=== PATIENT | female | born 1995 | race Caucasian/White ===

== ENCOUNTER 2019-03-27 00:56 | Inpatient (IN) | payer OTHER ==
[2019-03-27] MEDS ORDERED: OLIVE OIL 118 ML BTL MISC PRN (01:11)
[2019-03-27] MEDS ORDERED: EPSOM SALT 454 GM TP PRN (01:11)
[2019-03-27] MEDS ORDERED: OXYTOCIN/RINGERS LACTATE 1,000 ML IV PRN (01:11)
[2019-03-27] MEDS ORDERED: IBUPROFEN 600 MG TAB PO PRN (01:11)
[2019-03-27] MEDS ORDERED: MISOPROSTOL 200 MCG TAB PR PRN (01:11)
[2019-03-27] MEDS ORDERED: LIDOCAINE 1% 300 MG/30 ML SDV SC PRN (01:11)
[2019-03-27] MEDS: LR 1,000 ML IV PRN ×2 (02:03→04:43)
[2019-03-27 02:10] LABS: PLATELET COUNT 223 10^3/uL (150-400)
[2019-03-27] MEDS ORDERED: BUPIVACAINE 0.25% 10 ML SDV ONE (02:23)
[2019-03-27] MEDS ORDERED: PHENYLEPHRINE HCL 100 MCG/ML SYR ONE (02:23)
[2019-03-27] MEDS ORDERED: PHENYLEPHRINE HCL 100 MCG/ML SYR IVP PRN (02:25)
--- NOTE | 2019-03-27 02:25 | PREANESOB ---
Obstetric Pre-Anesthesia Info - General Info Proposed Procedure: LIANE : 3 Para: 0 DELANEY: 03/25/19 Gestational Age: 40 week(s) and 2 day(s) - Info Status: Full Term Monitors: External FHR Pattern: Reassuring - Labor Status PIH: No Indications for Labor Analgesia: Pain Control Labor Epidural: Proposed Anesthesia Allergies/Adverse Reactions: Allergy/AdvReac Type Severity Reaction Status Date / Time No Known Allergies Allergy Unverified 03/27/19 01:10 Home Medications: Medication Instructions Recorded 03/27/19 Visit Medications: Generic Name Dose Route Start Last Admin Trade Name Freq PRN Reason Stop Dose Admin Lactated Ringer's 1,000 mls @ 0 mls/hr 03/27/19 01:11 03/27/19 02:03 Lr IV 03/28/19 01:10 1,000 mls PRN PRN Administration SEE PROTOCOL CONDITIONS Protocol Per Protocol Oxytocin/Lactated Ringer's 1,000 mls @ 125 mls/hr 03/27/19 01:11 Pitocin 20 Units/Lr (Premix) IV PRN PRN Post bleeding Ibuprofen 600 mg 03/27/19 01:11 Motrin PO ONCE PRN post , pain Lidocaine HCl 300 mg 03/27/19 01:11 Lidocaine Hcl 1% SC 09/23/19 01:10 ONCE PRN episiotomy Magnesium Sulfate 454 gm 03/27/19 01:11 Epsom Salt TP 09/23/19 01:10 Q1H PRN perineal discomfort Misoprostol 800 - 1,000 mcg 03/27/19 01:11 Cytotec MT ONCE PRN Vaginal Atony/Bleeding [place] Oil 118 ml 03/27/19 01:11 Sweet Oil MISC 09/23/19 01:10 ONCE PRN perineal massage Discontinued Medications Generic Name Dose Route Start Last Admin Trade Name Freq PRN Reason Stop Dose Admin Bupivacaine HCl Confirm 03/27/19 02:23 Sensorcaine 0.25% Sdv Administered 03/27/19 02:24 Dose 10 ml .ROUTE .STK-MED ONE Phenylephrine HCl Confirm 03/27/19 02:23 Neosynephrine Administered 03/27/19 02:24 Dose 1,000 mcg .ROUTE .STK-MED ONE - Anesthesia History Response to Local Anesthetics: Normal Anesthesia & Operative History: No Prior Problems - Vital Signs Height/Weight (Nursing): Height 162.56 cm Weight 85.729 kg - Focused Exam Neck exam: FROM Mallampati Score: Class 2 Mouth exam: normal dental/mouth exam Pulmonary: no respiratory distress, no rales or rhonchi, clear to auscultation Cardiovascular: regular rate and rhythym, no murmur, rub, or gallop Labs: 03/27/19 02:00
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
[2019-03-27] MEDS ORDERED: fentaNYL 200 MCG, BUPIVACAINE 0.5% 20 ML in NS 100 ML EP SCH (02:30)
[2019-03-27] MEDS ORDERED: fentaNYL 2MCG/ML/BUP 0.1% RTU 100 ML EP SCH (02:30)
[2019-03-27] MEDS ORDERED: LR 500 ML IV SCH (02:30)
[2019-03-27] MEDS ORDERED: LIDOCAINE 1% 300 MG/30 ML SDV ONE (02:45)
[2019-03-27] MEDS ORDERED: AMMONIA AROMATIC 1 EACH AMP IH ONE (02:46)
[2019-03-27] MEDS ORDERED: OLIVE OIL 118 ML BTL MISC ONE (02:46)
[2019-03-27] MEDS ORDERED: TERBUTALINE SULFATE 1 MG/ML VIAL ONE (02:46)
[2019-03-27] MEDS ORDERED: MISOPROSTOL 200 MCG TAB ONE (02:47)
[2019-03-27] MEDS ORDERED: OXYTOCIN 10 UNIT/ML VIAL ONE (02:47)
--- NOTE | 2019-03-27 03:03 | POSTANESTH ---
Post Anesthetic Evaluation Cardiovascular Status: Normal, Stable, Similar to Pre-Op Cond Respiratory Status: Normal, Stable, Similar to Pre-op Cond. Level of Consciousness/Mental Status: Can Participate in Eval, Alert and Oriented Pain Control: Adequate, Prn Tx Ordered Nausea/Vomiting Control: Adequate, Prn Tx Ordered Complications Possibly Related to Anesthesia: None Noted (Excellent analgesia.)
--- NOTE | 2019-03-27 06:43 | OBPROG ---
Labor Progress Note Assessment/Plan: Assessment: 23 y/o @ 40 2/7 weeks in labor Plan: Good cervical progress, regular contractions. status reassuring. I will sign off to Dr Diaz this am. 03/27/19 06:42 Subjective/Intrapartum Course: 03/27/19 06:40 Pt is doing well comfortable with her epidural. Objective: 03/27/19 02:00 Patient ABO/Rh A POSITIVE 03/27/19 02:00 - SVE Dilation (cm): 7 Effacement (%): 90 Station: 0 Membranes: AROM Amniotic Fluid Color: Clear (blood tinged) - Contraction Pattern Assessment Current Contraction Pattern: Regular (Q 2-3) - FHR Assessment Johansen FHR (bpm): 130 FHR Pattern Variability: Moderate FHR Category: 1 - Procedures Non-surgical Procedures: Amniotomy - AP Antepartum Course: 03/27/19 06:41 Late care, u/s dating @ 16 weeks + MJ, Etoh use prior to knowledge, neg u tox Oxytocin Orders Assessment - Pre-Induction/Augmentation Assessment Gestational Age: 40 week(s) and 2 day(s) ICD10 Worksheet Patient Problems: Problems Problem Status Onset Normal labor Acute - ICD10 Problem Qualifiers (1) Normal labor
[2019-03-27] MEDS ORDERED: ACETAMINOPHEN 500 MG TAB PO ONE (10:10)
--- NOTE | 2019-03-27 10:53 | OBPROG ---
Labor Progress Note Assessment/Plan: Assessment: 23 y/o @ 40 23/7 wks in active labor Plan: Continue current management SVE: Ant lip/100/0 Baby feels asynclitic on exam; will try position changes Pt is uncomfortable with L sided pain, pt is pressing epidural button with some relief Temp of 38.3 @ 0945, s/p Tylenol; no signs of tachycardia; will cont to monitor FHTs - Cat I tracing, reassuring Will reassess in 1 hour or sooner 03/27/19 10:48 Subjective/Intrapartum Course: 03/27/19 06:40 Pt is doing well comfortable with her epidural. 03/27/19 10:53 Pt is c/o pain on her L side that began about 10-15 min ago; she had pressed epidural button about 30 min ago with relief. She is breathing through her ctx' s. She does not feel any pressure. Objective: 03/27/19 02:00 Patient ABO/Rh A POSITIVE 03/27/19 02:00 - SVE Dilation (cm): 9 (Ant lip; baby feels asynclitic) Effacement (%): 100 Station: 0 - Contraction Pattern Assessment Current Contraction Pattern: Regular (q 2-3min) - FHR Assessment Johansen FHR (bpm): 140 FHR Pattern Variability: Moderate FHR Category: 1 - AP Antepartum Course: 03/27/19 06:41 Late care, u/s dating @ 16 weeks + MJ, Etoh use prior to knowledge, neg u tox Oxytocin Orders Assessment - Pre-Induction/Augmentation Assessment Gestational Age: 40 week(s) and 2 day(s) ICD10 Worksheet Patient Problems: Problems Problem Status Onset Normal labor Acute
--- NOTE | 2019-03-27 12:26 | OBPROG ---
Labor Progress Note Assessment/Plan: Assessment: 23 y/o @ 40 23/7 wks in active labor Plan: SVE: Complete/+1 Pt started to push and feels better pushing, suspect direct OP Will have pt turn to side with peanut to help rotate baby and then will start pushing again FHTs - Category I tracing, reassuring Anticipate 03/27/19 12:28 Subjective/Intrapartum Course: 03/27/19 06:40 Pt is doing well comfortable with her epidural. 03/27/19 10:53 Pt is c/o pain on her L side that began about 10-15 min ago; she had pressed epidural button about 30 min ago with relief. She is breathing through her ctx' s. She does not feel any pressure. 03/27/19 12:26 Pt is not feeling any better with ctx's and still notes L sided pain; bloody show noted Objective: 03/27/19 02:00 Patient ABO/Rh A POSITIVE 03/27/19 02:00 - Contraction Pattern Assessment Current Contraction Pattern: Regular (q 2-3min) - FHR Assessment Johansen FHR (bpm): 140 FHR Pattern Variability: Moderate FHR Category: 1 - AP Antepartum Course: 03/27/19 06:41 Late care, u/s dating @ 16 weeks + MJ, Etoh use prior to knowledge, neg u tox Oxytocin Orders Assessment - Pre-Induction/Augmentation Assessment Gestational Age: 40 week(s) and 2 day(s) ICD10 Worksheet Patient Problems: Problems Problem Status Onset Normal labor Acute
[2019-03-27] MEDS ORDERED: LR 500 ML IV PRN (14:33)
[2019-03-27] MEDS ORDERED: OXYTOCIN/RINGERS LACTATE 500 ML IV SCH (15:00)
[2019-03-27] MEDS ORDERED: oxyCODONE IR 5 MG TAB PO PRN (16:20)
[2019-03-27] MEDS ORDERED: SIMETHICONE 80 MG TAB CHEW PO PRN (16:20)
[2019-03-27] MEDS ORDERED: HYDROCORTISONE 0.5% CREAM TP PRN (16:20)
--- NOTE | 2019-03-27 16:39 | OBDEL ---
Info Type: Vaginal Presentation at Delivery: Vertex (ABHILASH) L&D Analgesia/Anesthesia Type: Epidural GBS+: No Intrapartum Medications: Generic Name Dose Route Start Last Admin Trade Name Freq PRN Reason Stop Dose Admin Lactated Ringer's 1,000 mls @ 0 mls/hr 03/27/19 01:11 03/27/19 04:43 Lr IV 03/28/19 01:10 1,000 mls PRN PRN Administration SEE PROTOCOL CONDITIONS Protocol Per Protocol Fentanyl 200 mcg/ Bupivacaine 100 mls @ 0 mls/hr 03/27/19 02:30 03/27/19 11: 40 HCl 20 ml/ Sodium Chloride EP 04/06/19 02:29 100 mls CONT OTTO Administration Protocol As Directed Oxytocin/Lactated Ringer's 500 mls @ 0 mls/hr 03/27/19 15:00 03/27/19 14:43 Pitocin 30 Units/Lr (Premix) IV 09/23/19 14:59 500 mls CONT OTTO Administration Protocol Per Protocol Discontinued Medications Generic Name Dose Route Start Last Admin Trade Name Freq PRN Reason Stop Dose Admin Acetaminophen 1,000 mg 03/27/19 10:10 03/27/19 10:25 Tylenol PO 03/27/19 10:11 1,000 mg ONCE ONE Administration - Care Provider Systems Lead/POULTRY OFFAL WORKER: Sharmin Bolanos - Hospital Course Intrapartum: 03/27/19 06:40 Pt is doing well comfortable with her epidural. 03/27/19 10:53 Pt is c/o pain on her L side that began about 10-15 min ago; she had pressed epidural button about 30 min ago with relief. She is breathing through her ctx' s. She does not feel any pressure. 03/27/19 12:26 Pt is not feeling any better with ctx's and still notes L sided pain; bloody show noted Indications for Delivery: Spontaneous Labor Vaginal Delivery - Delivery Provider Delivery Physician/CNM: Mirna Diaz - Labor and Delivery Onset of Contractions Date: 03/26/19 Onset of Contractions Time: 22:00 Onset of Contractions Type: Spontaneous Rupture of Membranes Date: 03/27/19 Rupture of Membranes Time: 06:33 Rupture of Membranes Type: Artificial Amniotic Fluid Color: Clear (blood tinged) Dilation Complete Date: 03/27/19 Dilation Complete Time: 12:00 Placenta Delivery Date: 03/27/19 Placenta Delivery Time: 15:32 Total Hours of Labor: 17 Non-surgical Procedures: Amniotomy Laceration: 3rd Degree, Other (Specify) (Rectal exam performed prior to the repair and after the repair; laceration closed in multiple layers with 3-0 Vicryl x 2) Repair: 3-0, Vicryl (x 2) Vaginal Sponge Count Correct: Yes Vaginal Needle Count Correct: Yes Vaginal Sweep Performed: Yes EBL: 350 cc Delivery Events: None Delivery Comment: A viable male born at 1527 over intact perineum under epidural anesthesia in ABHILASH presentation with 8 and 9 Apgars. VAVD secondary to maternal exhaustion and pushing x 2 hours with minimal descent of head. Discussed R /B/A and verbal consent given by Veronique and FOC. Kiwi-flat was then applied to head at +3 station with 5 pulls ano no pop-offs using adequate pressures throughout application. Vacuum was then removed and shoulders and remaining body delivered without difficulty. Baby boy to maternal abdomen. Cord clamping delayed x 60 sec. Cord then clamped x 2 and cut. Cord gases obtained: ABG 7.28 and VBG 7.19 as well as cord blood. Placenta then delivered spontaneously intact with 3-VC. Inspection of perineum and vagina revealed 3rd degree laceration; it was repaired in layers with 3-0 Vicryl x 2 after injection of 1% Plain Lidocaine. Pt saima well. Multiple rectal exams were performed to evaluate integrity of rectum prior to and after repair and no stitches noted on exam. Minimal bleeding noted at the end of the procedure and fundal exam revealed FF 2 below umbilicus. EBL 350 cc. No complications. Cord Gases: Cord Gases Cord Blood PCO2 43.2 mmHg (37-60) 03/27/19 15:27 Cord Base Excess -6.5 mEq/L (-13.6--3.2) 03/27/19 15:27 Cord ABG pH 7.28 (7.10-7.37) 03/27/19 15:27 Cord VBG pH 7.19 (7.20-7.42) L 03/27/19 15:27 Operative Report - Delivery Cord Gases: Cord Gases Cord Blood PCO2 43.2 mmHg (37-60) 03/27/19 15:27 Cord Base Excess -6.5 mEq/L (-13.6--3.2) 03/27/19 15:27 Cord ABG pH 7.28 (7.10-7.37) 03/27/19 15:27 Cord VBG pH 7.19 (7.20-7.42) L 03/27/19 15:27 Assissted Delivery Assisted Delivery Type: Vacuum Station: +3 Pop offs (Total): 0 Pulls (Total): 5 [place] Data DELANEY: 03/25/19 Gestational Age: 40 week(s) and 2 day(s) Johansen Delivery Date: 03/27/19 Delivery Time: 15:27 Sex of Infant: Male Score (1 Min): 8 Score (5 Min): 9 ICD10 Worksheet Patient Problems: Problems Problem Status Onset Normal labor Acute Status post vacuum-assisted vaginal delivery Acute - ICD10 Problem Qualifiers (1) Status post vacuum-assisted vaginal delivery
[2019-03-27] MEDS ORDERED: BISACODYL 10 MG SUPP PR PRN (16:45)
[2019-03-27] MEDS ORDERED: POLYETHYLENE GLYCOL 3350 17 GM PKT PO PRN (16:45)
[2019-03-27] MEDS ORDERED: MAGNESIUM HYDROXIDE 30 ML UDCUP PO PRN (16:45)
[2019-03-27] MEDS: DOCUSATE SODIUM 100 MG CAP PO SCH (22:30)
[2019-03-27] MEDS: IBUPROFEN 600 MG TAB PO PRN (22:30)
[2019-03-27] MEDS: ACETAMINOPHEN 325 MG TAB PO PRN (22:31)
[2019-03-28] MEDS: ACETAMINOPHEN 325 MG TAB PO PRN ×4 (04:43→22:08)
[2019-03-28] MEDS: IBUPROFEN 600 MG TAB PO PRN ×4 (04:43→22:08)
[2019-03-28] MEDS: DOCUSATE SODIUM 100 MG CAP PO SCH ×2 (09:26→22:08)
--- NOTE | 2019-03-28 12:12 | OBPP ---
Progress Note Assessment/Plan: Assessment: 23 y/o PPD #1 s/p VAVD doing well Plan: Recommended sitz baths today. Continue Colace x full 6 weeks and avoid constipation. support and they may start pumping today. Ensure good follow up for baby with ticket attendant. Routine PPC. Likely d/c home tomorrow. 03/27/19 06:42 03/28/19 12:10 Subjective/ Course: 03/28/19 12:07 Pt is doing well this am. She has good pain control with Ibuprofen and Tylenol and ice packs. She is ambulating and voiding without difficulty and has min lochia. Baby is doing well, they are struggling with breast feeding due to a difficult latch. Objective: 03/27/19 02:00 Patient ABO/Rh A POSITIVE 03/27/19 02:00 Temp Pulse Resp BP Pulse Ox 36.6 C 68 12 116/77 97 03/28/19 08:00 03/28/19 08:00 03/28/19 08:00 03/28/19 08:00 03/27/19 20:30 Uterine Position/Fundal Height: Umbilicus -2 Uterine Tone: Firm Physical Exam - Physical Exam General Appearance: WD/WN, alert, no apparent distress Neck: non-tender, full range of motion, supple Respiratory: chest non-tender, lungs clear, normal breath sounds Cardiac/Chest: regular rate, rhythm Abdomen: normal bowel sounds Extremities: swelling (tr), Matthieu's sign (neg)
--- NOTE | 2019-03-28 14:45 | POSTANESTH ---
Post Anesthetic Evaluation Cardiovascular Status: Normal, Stable, Similar to Pre-Op Cond Respiratory Status: Normal, Stable, Similar to Pre-op Cond. Level of Consciousness/Mental Status: Can Participate in Eval, Alert and Oriented Pain Control: Adequate, Prn Tx Ordered Nausea/Vomiting Control: Adequate, Prn Tx Ordered Complications Possibly Related to Anesthesia: None Noted (Catheter difficult to remove but came out with sustained pull. Pt satisifed with analgesia; meds wore off as usual. Typical needle site tenderness but no other problems.)
[2019-03-29] MEDS: ACETAMINOPHEN 325 MG TAB PO PRN (06:05)
[2019-03-29] MEDS: IBUPROFEN 600 MG TAB PO PRN (06:06)
--- NOTE | 2019-03-29 10:26 | OBPP ---
Progress Note Assessment/Plan: Assessment: ppd# 2 s/p VAVD with 3rd degree laceration breast feeding rh+/RI routine discharge and 3 degree laceration discharge instructions reviewed Plan: 03/29/19 10:25 Subjective/ Course: 03/28/19 12:07 Pt is doing well this am. She has good pain control with Ibuprofen and Tylenol and ice packs. She is ambulating and voiding without difficulty and has min lochia. Baby is doing well, they are struggling with breast feeding due to a difficult latch. 03/29/19 10:25 patient is doing well. pain is well controlled. normal lochia. is pumping and working with about breast feeding. voiding without difficulty. ready to go home. no concerns. Objective: 03/27/19 02:00 Patient ABO/Rh A POSITIVE 03/27/19 02:00 Temp Pulse Resp BP Pulse Ox 36.3 C 90 16 119/80 97 03/28/19 21:00 03/28/19 21:00 03/28/19 21:00 03/28/19 21:00 03/27/19 20:30 Physical Exam - Physical Exam Neck: non-tender, full range of motion Respiratory: chest non-tender, lungs clear, normal breath sounds Cardiac/Chest: normal peripheral pulses, regular rate, rhythm Abdomen: normal bowel sounds, non-tender, other (fundus firm and non tender) Extremities: normal range of motion, non-tender, normal inspection, normal capillary refill Skin: normal color, warm/dry Neuro/Psych: no motor/sensory deficits, alert, normal mood/affect, oriented x 3
--- NOTE | 2019-03-29 10:30 | OBGCSDC ---
General Delivery Information - General Info : 3 Para: 1 Abortions: 2 Type: Vaginal L&D Analgesia/Anesthesia Type: Epidural, Local Admission Date: 03/27/19 Labs: Patient ABO/Rh A POSITIVE 03/27/19 02:00 Hct 38.7 % (38.0-47.0) 03/27/19 02:00 - Hospital Course Antepartum: 03/27/19 06:41 Late care, u/s dating @ 16 weeks + MJ, Etoh use prior to knowledge, neg u tox Intrapartum: 03/27/19 06:40 Pt is doing well comfortable with her epidural. 03/27/19 10:53 Pt is c/o pain on her L side that began about 10-15 min ago; she had pressed epidural button about 30 min ago with relief. She is breathing through her ctx' s. She does not feel any pressure. 03/27/19 12:26 Pt is not feeling any better with ctx's and still notes L sided pain; bloody show noted : 03/28/19 12:07 Pt is doing well this am. She has good pain control with Ibuprofen and Tylenol and ice packs. She is ambulating and voiding without difficulty and has min lochia. Baby is doing well, they are struggling with breast feeding due to a difficult latch. 03/29/19 10:25 patient is doing well. pain is well controlled. normal lochia. is pumping and working with about breast feeding. voiding without difficulty. ready to go home. no concerns. Vaginal - Delivery Provider Delivery Physician/CNM: Mirna Diaz - Diagnosis Labor: Spontaneous Rupture of Membranes Type: Artificial Amniotic Fluid Color: Clear (blood tinged) Laceration: 3rd Degree, Other (Specify) (Rectal exam performed prior to the repair and after the repair; laceration closed in multiple layers with 3-0 Vicryl x 2) Repair: 3-0, Vicryl (x 2) Delivery Events: None - Procedures Assisted Delivery Type: Vacuum Non-surgical Procedures: Amniotomy - Delivery Non-surgical Procedures: Amniotomy EBL: 350 cc Data DELANEY: 03/25/19 Gestational Age: 40 week(s) and 4 day(s) Johansen Delivery Date: 03/27/19 Delivery Time: 15:27 Sex of : Male Weight (gm): 3755 g Score (1 Min): 8 Score (5 Min): 9 Discharge Information - Discharge Information Condition: Good Instruction/Follow Up: Four Weeks (post wellness center), Six Weeks ( post visit. )
[2019-03-29 11:27] VITALS: BP 109/74
[2019-03-29] MEDS: DOCUSATE SODIUM 100 MG CAP PO SCH (12:10)
== END 2019-03-29 13:00 | disposition home or self-care (01) | DRG 768 ==
LOC: OBSVTOIN 00:56 → FLD 00:56 → FOB 19:46
PROVIDERS: ADMIT Obstetrics & Gynecology; ATTEND Obstetrics & Gynecology
DX: O75.81 Maternal exhaustion complicating labor and delivery (principal); O70.20 Third degree perineal laceration during delivery, unspecified; Z3A.40 40 weeks gestation of pregnancy; Z37.0 Single live birth
CPT/HCPCS: J2370; J2590; J3010; J3105